=== PATIENT | female | born 1960 | race African-American/Black ===

== ENCOUNTER 2016-11-09 04:10 | Emergency (ER) | payer SELFPAY ==
[2016-11-09 04:28] VITALS: BP 155/79
== END 2016-11-09 04:50 | disposition left against medical advice (07) ==
LOC: ER 04:10
DX: Z53.21 Procedure and treatment not carried out due to patient leaving prior to being seen by health care provider (principal)

== ENCOUNTER 2017-06-17 08:25 | Emergency (ER) | payer SELFPAY ==
[2017-06-17] MEDS ORDERED: POLYMYXIN B SULFATE/TMP OPH SOLN 10 ML OU ONE (09:38)
[2017-06-17] MEDS ORDERED: IBUPROFEN 800 MG TABLET PO ONE (09:38)
--- NOTE | 2017-06-17 09:42 | ER Document Report ---
ED Eye Complaint - General Chief Complaint: Drainage from Eye Stated Complaint: [facility] Time Seen by Provider: 06/17/17 09:22 Mode of Arrival: Ambulatory Information source: Patient Notes: Patient is a 56-year-old female who comes to the emergency department today complaining of 4 days of sinus pressure, runny nose, right eye pain, watering from the right eye. Patient states that she does think she saw some green discharge in the right eye today. She states that it hurts to move her eye on that side only, wears glasses denies wearing contacts. Denies anything getting in the eye that she knows of. TRAVEL OUTSIDE OF THE [place] IN LAST 30 DAYS: No - Related Data Allergies/Adverse Reactions: aspirin Allergy (Verified 06/17/17 08:33) Past Medical History - General Information source: Patient - Social History Smoking Status: Never Smoker Family History: Reviewed & Not Pertinent Patient has suicidal ideation: No Patient has homicidal ideation: No - Past Medical History Cardiac Medical History: Reports: Hx Hypertension Neurological Medical History: Reports: Hx Migraine Renal/ Medical History: Denies: Hx Peritoneal Dialysis Surgical Hx: Negative Review of Systems - Review of Systems Constitutional: No symptoms reported. denies: Chills, Fever EENT: See HPI Cardiovascular: No symptoms reported Respiratory: No symptoms reported Gastrointestinal: No symptoms reported Genitourinary: No symptoms reported Female Genitourinary: No symptoms reported Musculoskeletal: No symptoms reported Skin: No symptoms reported Hematologic/Lymphatic: No symptoms reported Neurological/Psychological: No symptoms reported Physical Exam - Vital signs Vitals: Temp Pulse Resp BP Pulse Ox 97.6 F 77 18 145/83 H 99 06/17/17 08:30 06/17/17 08:30 06/17/17 08:30 06/17/17 08:30 06/17/17 08:30 - Notes Notes: PHYSICAL EXAMINATION: GENERAL: Mildly ill-appearing, but in no acute distress. HEAD: Atraumatic, normocephalic. EYES: Pupils equal round and reactive to light, extraocular movements intact, sclera anicteric, conjunctiva erythematous and watering to the right eye ENT: ear canals without erythema or foreign body, TMs pearly huizar with good bony landmarks, nares with mucoid discharge, oropharynx clear without exudates. Moist mucous membranes. Right maxillary sinus and frontal sinuses tender to palpation NECK: Normal range of motion, supple without lymphadenopathy LUNGS: CTAB and equal. No wheezes rales or rhonchi. HEART: Regular rate and rhythm without murmurs ABDOMEN: Soft, no tenderness. No guarding, no rebound BACK: no vertebral tenderness, normal ROM GI/: no CVA tenderness EXTREMITIES: Normal range of motion, no pitting edema. No cyanosis. NEUROLOGICAL: Cranial nerves grossly intact. Normal sensory/motor exams. PSYCH: Normal mood, normal affect. SKIN: Warm, Dry, normal turgor, no rashes or lesions noted Course - Re-evaluation Re-evalutation: 06/17/17 10:23 Fluorescein stain reveals no acute ulcer, abrasion or foreign body, pressure in the right eye was 16 which is normal. Patient given antibiotic eyedrops from the emergency department to go home with as well as a Z-Harsh and Flonase. - Vital Signs Vital signs: Temp Pulse Resp BP Pulse Ox 97.6 F 77 18 145/83 H 99 06/17/17 08:30 06/17/17 08:30 06/17/17 08:30 06/17/17 08:30 06/17/17 08:30 Procedures - Eye Procedure Right Time completed: 10:00 Eye Irrigated w/ Saline (ccs): 30 Alcaine Drops Administered: Yes Fluorescein applied: Right Antibiotic Oinment/Drps Admin: Right eye Slit lamp used: No Discharge - Discharge Clinical Impression: Sinusitis Qualifiers: Sinusitis location: frontal Chronicity: acute Recurrence: non-recurrent Qualified Code(s): J01.10 - Acute frontal sinusitis, unspecified Eye pain Qualifiers: Laterality: right Qualified Code(s): H57.11 - Ocular pain, right eye Condition: Stable Disposition: HOME, SELF-CARE Instructions: Antibiotic Therapy ([facility]), Conjunctivitis ([facility]), Eyedrop Use ([facility]) Additional Instructions: Return immediately for any new or worsening symptoms. Follow up with primary care provider, call tomorrow to make followup appointment. Prescriptions: Azithromycin [Zithromax 250 mg Tablet] 250 mg PO ASDIR PRN #6 tablet PRN Reason: Fluticasone Propionate [Flonase Nasal [place]y 50 Mcg/[place]y 16 gm] 2 sprays NASL Q12 #1 inhaler
[2017-06-17 10:26] VITALS: BP 151/75
== END 2017-06-17 10:27 | disposition home or self-care (01) ==
LOC: ER 08:25
DX: J01.10 Acute frontal sinusitis, unspecified (principal); H57.11 Ocular pain, right eye; I10 Essential (primary) hypertension; Z88.6 Allergy status to analgesic agent
CPT/HCPCS: 99282; J3490